=== PATIENT | female | born 1985 ===

== ENCOUNTER 2025-02-23 09:02 | Emergency (ER) | payer SELFPAY ==
[2025-02-23 09:20] VITALS: BP 138/83; PULSE 100; RESP 18; TEMP 36.6; O2SAT 100
--- NOTE | 2025-02-23 11:41 | PC.NURSE ---
This RN into room, noted there was no patient in room. checked BR and WR and found no patient meeting the patient's description. Midlevel to room and noted that the patient was not in the room.
== END 2025-02-23 11:41 | disposition left against medical advice (07) ==
LOC: ANHED 12:17
PROVIDERS: Emergency Provider Nurse Practitioner Family
DX: M54.6 Pain in thoracic spine (principal)
CPT/HCPCS: 99199